=== PATIENT | female | born 1965 ===

== ENCOUNTER 2016-09-23 09:21 | Emergency (ER) | payer MEDICAID, OTHER ==
[2016-09-23 09:53] VITALS: RESP 20
--- NOTE | 2016-09-23 10:21 | C.PDOC ---
History Of Present Illness 51 y/o female no pmhx s/p left shoulder surgery 6 days ago presents with right thigh pain and numbness which began later on same day as surgery. Denies procedure or trauma to right thigh. Denies chest pain, SOB, fever, weakness or any other complaints. Time Seen by Provider: 09/23/16 09:56 Chief Complaint (Nursing): Lower Extremity Problem/Injury History Per: Patient History/Exam Limitations: no limitations Onset/Duration Of Symptoms: Days Current Symptoms Are (Timing): Still Present Severity: Mild Recent travel outside of the [place]: No Past Medical History Reviewed: Historical Data, Nursing Documentation, Vital Signs Vital Signs: Last Vital Signs Temp 98.4 F 09/23/16 09:49 Pulse 84 09/23/16 09:49 Resp 20 09/23/16 09:49 BP 112/77 09/23/16 09:49 Pulse Ox 99 09/23/16 10:27 - [facility] Procedures INJECT/INFUSE NEC (10/15/12) Family History: States: Unknown Family Hx - Social History Hx Alcohol Use: Yes Hx Substance Use: No Review Of Systems Except As Marked, All Systems Reviewed And Found Negative. Constitutional: Negative for: Fever Cardiovascular: Negative for: Chest Pain Respiratory: Negative for: Shortness of Breath Musculoskeletal: Positive for: Other (right thigh pain and numbness) Neurological: Negative for: Weakness Physical Exam - Physical Exam Additional Physical Exam Comments: Constitutional: No acute distress. Head: Normocephalic. Atraumatic. Eyes: PERRL. ENT: Moist mucous membranes. Neck: Supple. Cardiovascular: Regular rate. Radial pulses 2+ bilaterally. Chest: No tenderness. Respiratory: Clear to auscultation bilaterally. GI: Soft. Nontender. Nondistended. Back: No midline back tenderness. Musculoskeletal: No tenderness of extremities. No discernable asymmetric swelling. Left shoulder with surgical incision, clean, dry; no erythema or discharge. Skin: No rash. Neurologic: Alert. Decreased sensation to light touch of lateral right thigh. Motor 5/5 bilaterally. ED Course And Treatment O2 Sat by Pulse Oximetry: 99 (room air) Pulse Ox Interpretation: Normal Medical Decision Making Medical Decision Making: Will send patient for doppler to r/o DVT in setting of recent surgery without hx of trauma or injury. No indication for X-rays. Also maybe muscle spasm vs sciatica. Pt does note mild lower back pain, already on percocet. Doppler negative for DVT. Will discharge, has follow up with Ortho in 3 days. Copy of US report provided. Disposition - Disposition Disposition: HOME/ ROUTINE Disposition Time: 11:23 Condition: STABLE Instructions: Leg Pain (ED) - Clinical Impression Clinical Impression: Leg pain - Scribe Statement The provider has reviewed the documentation as recorded by the Lynda Martinez Provider Attestation: All medical record entries made by the Lynda were at my direction and personally dictated by me. I have reviewed the chart and agree that the record accurately reflects my personal performance of the history, physical exam, medical decision making, and the department course for this patient. I have also personally directed, reviewed, and agree with the discharge instructions and disposition.
[2016-09-23 11:33] VITALS: BP 111/70; PULSE 78; TEMP 97.8; O2SAT 100
--- NOTE | 2016-09-23 15:21 | VASCLAB ---
PROCEDURE: Right Lower Extremity Venous Duplex Exam. HISTORY: R leg pain, r/o DVT PRIORS: None. TECHNIQUE: Right common femoral, femoral, popliteal and posterior tibial, peroneal and great saphenous veins were evaluated. Flow was assessed with color Doppler, compressibility, assessment of phasic flow and augmentation response. Report prepared by MERCY Gonzáles, RVT FINDINGS: RIGHT: 1. Common Femoral Vein: 1.1. Compressibility - Fully compressible: Thrombus - None: Flow - Phasic: Augmentation -Normal: Reflux - None. 2. Femoral Vein: 2.1. Compressibility - Fully compressible: Thrombus - None: Flow - Phasic: Augmentation -Normal: Reflux - None. 3. Popliteal Vein: 3.1. Compressibility - Fully compressible: Thrombus - None: Flow - Phasic: Augmentation -Normal: Reflux - None. 4. Posterior Tibial Vein: 4.1. Compressibility - Fully compressible: Thrombus - None: Flow - Phasic: Augmentation -Normal: Reflux - None. 5. Peroneal Vein: 5.1. Compressibility - Fully compressible: Thrombus - None: Flow - Phasic: Augmentation -Normal: Reflux - None. 6. Great Saphenous Vein: 6.1. Compressibility - Fully compressible: Thrombus -None: Flow - Phasic: Augmentation - Normal: Reflux - None. OTHER FINDINGS: IMPRESSION: No evidence of deep or superficial vein thrombosis of the right lower extremity with excellent venous flow. Normal valve function noted of the right side. Normal venous flow noted in the left common femoral vein.
== END 2016-09-23 11:34 | disposition home or self-care (01) ==
LOC: C.ER 09:21
DX: M79.651 Pain in right thigh (principal)